=== PATIENT | female | born 1940 | race Caucasian/White ===

== ENCOUNTER 2024-06-20 01:40 | Inpatient (IN) | payer MEDICARE, OTHER, SELFPAY ==
[2024-06-19 23:38] VITALS: BMI 21.0
[2024-06-19 23:47] VITALS: BP 178/124
[2024-06-20] VITALS (89 sets, daily range): BP systolic 105–225; BP diastolic 40–202; BMI 22.5
[2024-06-20] MEDS: TRANDATE 5 MG IV (00:21)
[2024-06-20 00:22] LABS: INR 0.89; PT 12.4 Sec (11.4-14.6)
[2024-06-20 00:23] LABS: APTT 27.2 Sec (23.4-35.0)
[2024-06-20 00:33] LABS: % Basophils 0.7 % (0-2); % Eosinophils 2.6 % (0-6); % Immature Granulocytes 0.3 % (0-0.5); % Lymphocytes 31.6 % (20.5-51.1); % Monocytes 9.2 % (1.7-9.3); % Neutrophils 55.6 % (42.2-75.2); ALT (SGPT) 25 U/L (0-35); AST (SGOT) 34 U/L (14-36); Absolute Basophils 0.1 10^3/uL (0-0.2); Absolute Eosinophils 0.2 10^3/uL (0-0.7); Absolute Lymphocytes 2.3 10^3/uL (1.2-3.4); Absolute Monocytes 0.7 10^3/uL (0.1-0.6); Albumin 5.2 g/dl (3.5-5.0); Alkaline Phosphatase 147 U/L (38-126); Blood Urea Nitrogen 13 mg/dl (7-17); Calcium 9.6 mg/dl (8.4-10.2); Carbon Dioxide 26 mmol/L (22-30); Chloride 101 mmol/L (98-107); Estimated Creatinine Clearance 61 ml/min; Glucose 237 mg/dl (70-99); Hematocrit 40.9 % (37.0-47.0); Hemoglobin 14.2 g/dL (12.0-16.0); Mean Corp Hgb Conc. 34.7 g/dL (33.0-37.0); Mean Corpuscular Hgb 30.9 pg (27.0-31.0); Mean Corpuscular Volume 88.9 fL (81.0-99.0); Nucleated Red Blood Cells % 0 %; Platelet Count 212 10^3/uL (130-400); Potassium 4.3 mmol/L (3.5-5.1); Red Cell Dist. Width 12.2 % (11.5-14.5); Sodium 139 mmol/L (135-145); Total Bilirubin 0.5 mg/dl (0.2-1.3); Total Protein 7.9 g/dl (6.3-8.2); White Blood Cell Count 7.3 10^3/uL (4.8-10.8); eGFR > 60.00
--- NOTE | 2024-06-20 00:39 | ED.CVA ---
History of Present Illness
General
Chief Complaint: CVA/TIA Symptoms
Source: patient
Exam Limitations: none
Time Seen by Provider: 06/20/24 00:27
Nursing documentation reviewed up to this point in time: agreed with
Onset of Stroke Symptoms
Onset of symptoms known: Yes
Date of onset of symptoms: 06/19/24
Time of onset of symptoms: 22:30
Time pt last seen normal is known: Yes
Date last time pt seen normal: 06/19/24
Time last time pt seen normal: 22:00
History of Present Illness
History of Present Illness:
This is an 84 female that presents to the emergency department after seeing bright, with nausea and headache. She states that she lost peripheral vision in her right eye but states that this is improving. Patient states that she has never had
symptoms like this before. Patient does have high blood pressure today without a known history of hypertension. She is accompanied by her daughter who is present at the bedside.
Vital signs are stable. Patient not hypoxic
Nursing note reviewed. I agree with nursing documentation up to this point in time.
Home Meds and allergies reviewed.
NUMBER AND COMPLEXITY OF PROBLEMS ADDRESSED AT THE ENCOUNTER
� Chronic conditions affecting care: Hyperlipidemia, diabetes
� Acute Exacerbation and/or Progression of Chronic Illness:
� Differential Diagnosis includes:
AMOUNT AND/OR COMPLEXITY OF DATA TO BE REVIEWED AND ANALYZED
I performed an independent evaluation of the following and my interpretation is:
EKG: EKG shows normal sinus rhythm rate of 89 with normal intervals, normal axis. No evidence of acute ischemia present.
Pulse Ox: Not Hypoxic
Conciliator: Sinus Rhythm
CT:
CT HEAD (without contrast)
IMPRESSION:
Small acute intraparenchymal hematoma in the left subthalamic/midbrain region, measuring 1.8 x 0.7 x 1.2 cm, with very mild surrounding edema.
No midline shift, effacement of basilar cisterns, or transtentorial herniation.
No CT evidence of acute large territorial infarction.
Mild chronic microvascular ischemic changes of cerebral white matter.
Cerebral volume loss.
X-rays:
Ultrasound:
Laboratory Studies:
Other:
Review of other/old records:
Clinical information was obtained by an independent historian:
Prescriptions/Medications Considered but not given:
Further testing considered but not performed:
RISK OF COMPLICATIONS AND/OR MORBIDITY OR MORTALITY OF PATIENT MANAGEMENT
Social determinants of health affecting care: Good Social Support
Discussion with other providers: I spoke with Dr. Em, neurology who recommended admission to the ICU. I spoke with Dr. Valero via Stephan text who agreed with the plan. Patient is on a labetalol drip to get her blood
pressure closer to normal.
Escalation of care including admission/observation vs risk of discharge considered: After being observed in the emergency department, patient is
CRITICAL CARE NOTE:
Critical care statement: A total of 50 minutes of critical care time was provided for this patient. This time is separate from time utilized to perform the aforementioned documented procedures. Aggregate critical care time includes only time
during which I was engaged in work directly related to the patient's care, as described above, whether at the bedside or elsewhere in the Emergency Department.
Total Time (exclusive of procedures):50
Update:
Past History
Past History
ED Past Medical History: GERD, HTN and NIDDM
Social History
Tobacco: Former smoker
Alcohol: None
Living: with family
Review of Systems
Review of Systems
Allergies reviewed?: Yes
Other source history: family
All Other Systems: ROS reviewed and negative except as documented in HPI and ROS
Phy Exam
General Physical Exam
General Presentation: well appearing and no apparent distress
General Skin: warm and dry
General Habitus: normal
General Mental: alert
General Hydration: appears well hydrated
ENT Exam
ENT Exam: EOMI, pharynx normal, neck supple and normocephalic
Eye Exam
Eye Exam: PERRL, cornea clear and conjunctiva normal
Cardiovascular Exam
Cardiovascular Exam: regular rate/rhythm, no edema, no murmur and normal peripheral pulses
Pulmonary Exam
Pulmonary Exam: lungs clear, no respiratory distress, no rales, no crackles, no rhonchi, no stridor, no wheezing and no cough
Gastrointestinal Exam
Gastrointestinal Exam: normal bowel sounds, non tender, soft, no organomegaly, no pulsatile mass and non distended
Neurological Exam
Neurological Exam: alert, oriented x3, no motor deficits and speech normal
Musculoskeletal Exam
Musculoskeletal Exam: full ROM and no edema
Skin Exam
Skin Exam: normal color, warm/dry, no rash and no petechia
Psychiatric Exam
Psychiatric Exam: normal mood/affect
Scores
NIH Stroke Score
Level of Consciousness: 0 - Alert
LOC Questions: 0-Answers both correctly
LOC Commands: 0-Performs both correctly
Best Horizontal Gaze: 0-Normal
Visual Thomas: 1=Partial hemianopia
Facial Palsy: 0=Normal, symmetrical
Motor - Right Arm: 0=No drift 10 seconds
Motor - Left Arm: 0=No drift 10 seconds
Motor - Right Le-No drift 5 seconds
Motor - Left Le-No drift 5 seconds
Limb Ataxia: 0-Absent
Sensation: 0-Normal
Best Language: 0-No aphasia
Dysarthria: 0-Normal
Extinction and Inattention: 0-No abnormality
Total Score:: 1
Thrombolytic Contraindication
Reasons for NON-Tx with Thrombolytics ABSOLUTE Exclusions: Evidence of intracranial hemorrhage on pre-treatment CT head
Course
Orders/Labs/Results
Orders:
Orders
06/19/24 23:58
Electrocardiogram (*1) Urgent
Reason for Study: Other
Other Reason for Exam: Possible Stroke
Cardiac Monitoring- Treatment ONCE
IV Insert/Care/Rem.- Treatment PRN
Complete Blood Count/With Diff Urgent
Comprehensive Metabolic Panel Urgent
PTT Urgent
Prothrombin Time Urgent
Troponin I Urgent
06/19/24 23:59
EKG- Treatment ONCE
06/20/[address]
CT HEAD STROKE ALERT W/o Cont Urgent
Reason For Exam: visual disturbance
06/20/24 00:17
Type+Screen Urgent
06/20/24 00:19
Labetalol HCl [Trandate] 20 mg .ROUTE .STK-MED ONE
06/20/24 00:21
Labetalol HCl [Trandate] 5 mg IV NOW STA
06/20/24 00:30
ABO2 Routine
BBK Wristband Number:
Associate notified that ABO2 has been ordered: [id number]
Date: 06/20/24
Time: 00:29
Rural Service Engineer ID: [id number]
06/20/24 00:33
Labetalol HCl [Trandate] 20 mg IV [id number] PRN
06/20/24 00:41
Labetalol HCl [Trandate] 400 mg Empty Viaflex Container 100 ml [Viaflex Empty Container] 0 ml IV NOW
Initial dose in mg/min, then titrate:: 2
Titrate to keep:: Other
Titrate to keep other:: BP < 120/80
Titrate by mg/min:: 0.5 mg/min
Frequency of titrations (minutes):: 15
Additional Titration Instructions:: Bolus with 20 mg IV every 15 minutes PRN dose increase
Maximum dose in mg/min:: 4
Begin to taper infusion when:: Remained at goal for 4hrs
Taper by mg/min:: 0.5 - 1 mg/min
Frequency of taper (minutes) if patient maintains goal:: 30
Taper to off?: Yes
If infusion off & no longer maintaining goal:: Contact Provider
06/20/24 01:00
Nicardipine 40 mg/200 ml [Cardene] 40 mg in 200 ml IV PER PROTOCOL
Initial dose in mg/hr, then titrate:: 5
Titrate to keep:: SBP 120 - 140 mmHg
Titrate by mg/hr:: 2.5 mg/hr
Frequency of titrations (minutes):: 5-15 minutes
Maximum dose in mg/hr:: 15
Begin to taper infusion when:: Remained at goal for 2hrs
Taper by mg/hr:: 2.5 mg/hr
Frequency of taper (minutes) if patient maintains goal:: every 15-30 minutes
Taper to off?: Yes
If infusion off & no longer maintaining goal:: Contact Provider
Abnormal Lab Results
06/20/24
00:04
MPV 11.0 H fL
(7.4-10.4)
Absolute Monos (auto) 0.7 H 10^3/uL
(0.1-0.6)
Creatinine 0.5 L mg/dL
(0.6-1.0)
Glucose 237 H mg/dl
(70-99)
Alkaline Phosphatase 147 H U/L
(38-126)
Albumin 5.2 H g/dl
(3.5-5.0)
06/20/24 00:04
06/20/24 00:04
Vital Signs
Initial and Last Documented VS:
Initial Vital Signs
Temp Pulse Resp BP Pulse Ox
97.4 F 102 22 178/124 98
06/19/24 23:47 06/19/24 23:47 06/19/24 23:47 06/19/24 23:47 06/19/24 23:47
Last Documented Vital Signs
Temp Pulse Resp BP Pulse Ox
97.4 F 101 12 211/131 98
06/19/24 23:47 06/20/24 00:21 06/20/24 00:15 06/20/24 00:21 06/20/24 00:15
*Radiology
Radiology exam reviewed: radiology read reviewed (Verbal report received)
*Pulse Oximetry
Patient hypoxic: no
*EKG
Interpreted by ED Provider?: Yes
Interpretation: normal
Comparison EKG: changes noted
Heart Rate: 89
Rate: normal
Rhythm: sinus
[place]: right axis deviation
Interval: normal interval and long QT (Slightly prolonged QT at 491 ms.)
QRS Pattern: normal QRS
Ischemia: no ischemia
*Conciliator Interpretation
Rate: normal
Interpretation: normal
Heart Rate: 82
Rhythm: sinus
*Critical Care Note
Total Time (30-74mins, 75-104mins- exclusive of procedures): 50
ED Attending Note
-
Portions of this chart may have been created with voice recognition software.� Occasional wrong word or��sound alike� substitutions may have occurred due to the inherent limitations of voice recognition software.
Discharge Plan
Departure
Patient Disposition: Admit
Date of Disposition: 06/20/24
Time of Disposition: 01:01
Admit to: ICU
Presentation/result/management discussed w/ accepting MD/DO: Hospitalist
Condition: Serious
Discharge Problem:
Intraparenchymal hemorrhage of brain
Prescriptions:
No Action
pravastatin [Pravachol] 40 MG tablet
40 mg PO DAILY
ascorbic acid (vitamin C) [Vitamin C] 500 MG capsule, extended release
500 mg PO DAILY
omeprazole magnesium [Prilosec OTC] 20 MG tablet,delayed release (DR/EC)
40 mg PO DAILY
multivitamin with folic acid [Tab-A-Jennifer] 1 TABLET tablet
1 tab PO DAILY
metformin 1,000 mg Tablet
1,000 mg PO BID
coenzyme Q10 [CoQ-10] 30 mg Capsule
30 mg PO DAILY
Interventions
Interventions:
*Risk Screen - Suicide Last Done: 06/19/24 23:47
*General Assessment Last Done: 06/20/24 00:47
*Neglect/Abuse Screening Last Done: 06/19/24 23:47
*ED COVID-19 Vaccine History Last Done: 06/20/24 00:47
ED- Pulmonary Assessment Last Done: 06/20/24 00:00
ED- Neurological Assessment Last Done: 06/20/24 00:00
ED- Cardiac Assessment Last Done: 06/20/24 00:00
Discharge Date and Time
Print Language: MAORI
[2024-06-20 00:40] LABS: Troponin I < 0.012 ng/ml
[2024-06-20] MEDS: CARDENE 200 IV ×4 (01:04→09:58)
--- NOTE | 2024-06-20 01:15 | HPS.HSE ---
Family Physician
-
Family Physician: NO INTERVIEW UNKNOWN
Chief Complaint
-
Vision Changes
History of Present Illness
Patient is an 84y F with PMH significant for DM-II and dyslipidemia who presents to ED complaining of vision changes. Patient states that she noted sudden onset of colorful shapes in her vision around 10:30 PM this evening. She reports very
mild headache, but no other symptoms. The vision changes have persisted and are unchanged. She presented to the ED for further evaluation and treatment.
CT of the head done in the ED reveals small subthalamic intracerebral hemorrhage without midline shift.
Case reviewed with Neurology and Neurosurgery who recommended admission to ICU at for further management.
Medical History
Past Medical History
Past Medical History: Reports Other
Additional Past Medical History:
DM-II
Sicca Syndrome
GERD
Dyslipidemia
Skin Cancer
Diverticular Disease
Past Surgical History: Reports Other
Additional Past Surgical History:
Breast Biopsy (benign)
Hysterectomy
D&C
Ex Lap / Partial Oophorectomy
Social History
Tobacco: Former Smoker (Quit smoking > 50 years ago.)
Alcohol: Occasional
Drug: None
Family History
Family History: Other (Father: Colon Cancer Mother: DM)
Allergies / Home Medications
Allergies reflects when Allergies were last updated in [facility].
Home Medications with original date entered in [facility]
Allergy/Medication List:
Allergies
Allergy/AdvReac Type Severity Reaction Status Date / Time
Penicillins Allergy Unknown Verified 11/04/14 12:55
Sulfa (Sulfonamide Allergy Swelling Verified 11/04/14 12:55
Antibiotics)
acromycin Allergy Swelling Uncoded 11/04/14 12:55
Home Medications
ascorbic acid (vitamin C) 500 mg capsule,extended release (Vitamin C) 500 mg PO DAILY 09/28/10
multivitamin with folic acid 400 mcg tablet (Tab-A-Jennifer) 1 tab PO DAILY 11/11/09
omeprazole magnesium 20 mg tablet,delayed release (Prilosec OTC) 40 mg PO DAILY 11/11/09
pravastatin 40 mg tablet (Pravachol) 40 mg PO DAILY 11/11/09
coenzyme Q10 30 mg capsule 30 mg PO DAILY 06/20/24
metformin 1,000 mg tablet 1,000 mg PO BID 06/20/24
Review of Systems
-
History Source: Patient
A 12 point ROS was completed and negative except as noted: Yes
Constitutional: Reports Fatigue; Denies Fever or Chills
EENT: Reports Other (Vision changes); Denies Sore Throat
Respiratory: Denies Cough or Trouble Breathing
Cardiac: Denies Chest Pain or Palpitations
Abdomen/GI: Denies Abdominal Pain, Nausea, Vomiting or Diarrhea
: Denies Dysuria, Frequency or Flank Pain
Musculoskeletal: Denies Joint Pain or Edema
Neurological: Reports Dizzy and Headache; Denies Weakness or Numbness
Psych: Denies Depression or Anxiety
Physical Exam
Vital Signs
Vital Signs
Temp Pulse Resp BP Pulse Ox
97.4 F 104 23 196/95 92
06/19/24 23:47 06/20/24 01:10 06/20/24 01:10 06/20/24 01:10 06/20/24 01:10
Physical Exam
General: Other (84y F in no acute distress.)
HEENT: PERRLA and Other (Dry MM. Neck supple.)
Respiratory: Clear; No Wheezes, Rales or Rhonchi
Cardiac: S1/S2 and Regular Rhythm; No Murmur
GI: Soft, Non Tender, Non Distended and Normal Bowel Sounds
Musculoskeletal: No Clubbing, No Cyanosis and No Edema
Neuro: AO x 3 and Other (Reported visual changes. No gross visual field cut on exam. Strength intact / symmetric. Slightly 'jerky' eoaolt-ma-dfeh testing.)
Psych: No Anxious or Depressed
Laboratory Results
-
06/20/24 00:04
06/20/24 00:04
Laboratory Results
PT 12.4 Sec (11.4-14.6) 06/20/24 00:04
INR 0.89 06/20/24 00:04
APTT 27.2 Sec (23.4-35.0) 06/20/24 00:04
Total Bilirubin 0.5 mg/dl (0.2-1.3) 06/20/24 00:04
AST 34 U/L (14-36) 06/20/24 00:04
ALT 25 U/L (0-35) 06/20/24 00:04
Alkaline Phosphatase 147 U/L (38-126) H 06/20/24 00:04
Troponin I < 0.012 ng/ml 06/20/24 00:04
Impression/Plan
-
A/P: Patient is an 84y F with PMH significant for DM-II and dyslipidemia who presents to ED complaining of vision changes.
Intracranial Hemorrhage
Hypertensive Emergency
- Admit to ICU for further evaluation / close monitoring.
- IV nicardipine initiated for goal SBP of 140 overnight.
- Follow serial neurologic exams for any changes.
- Repeat imaging with MRI in AM. Repeat CT sooner if any acute changes.
- Neurology / Neurosurgery evaluations for additional recommendations.
- Avoid antiplatelets, anticoagulants acutely.
- PT / OT / Speech evaluations.
- Follow for clinical changes.
DM-II
- Stable. Hold PO medications.
- Follow glucose and cover with SSI as needed.
- Update A1C.
DVT Prophylaxis: SCDs
Code Status: Full
--- NOTE | 2024-06-20 01:27 | EDRN ---
This RN asked pt. if she is allergic to contrast dye, pt. states, 'I may be, is that the sulfa drug dye? because one time for my bladder I did have the dye test and I had a reaction, my whole arm was swollen'. When RN asked pt. is it was the
contrast dye for a CT scan, pt. states, 'it could have been, I don't remember what it was but I definitely had a reaction'.
[2024-06-20 02:14] LABS: Glucose - Point of Care 261 mg/dl (70-99)
--- NOTE | 2024-06-20 02:30 | PTCARENOTE ---
Received pt on Cardene gtt at 12.5. Goal to maintain SBP 120-140. Patient Aox3, very anxious, VEGA, NIH-1 for visual cut in right eye. BG 261, 4 units given.
[2024-06-20] MEDS: NOVOLOG FLEXPEN 4 UNITS SC (03:18)
[2024-06-20] MEDS: TYLENOL ORAL SOLUTION 650 MG PO ×3 (04:32→20:43)
[2024-06-20 04:37] LABS: Hematocrit 37.4 % (37.0-47.0); Hemoglobin 13.3 g/dL (12.0-16.0); Mean Corp Hgb Conc. 35.6 g/dL (33.0-37.0); Mean Corpuscular Hgb 31.2 pg (27.0-31.0); Mean Corpuscular Volume 87.8 fL (81.0-99.0); Platelet Count 219 10^3/uL (130-400); Red Blood Cell Count 4.26 10^6/uL (4.20-5.40); Red Cell Dist. Width 12.2 % (11.5-14.5); White Blood Cell Count 10.7 10^3/uL (4.8-10.8)
[2024-06-20 05:09] LABS: Blood Urea Nitrogen 14 mg/dl (7-17); Calcium 9.3 mg/dl (8.4-10.2); Carbon Dioxide 24 mmol/L (22-30); Chloride 100 mmol/L (98-107); Estimated Creatinine Clearance 61 ml/min; Glucose 277 mg/dl (70-99); HDL Cholesterol 61 mg/dl; LDL Cholesterol, Calculated 85 mg/dl; Magnesium 1.8 mg/dl (1.6-2.3); Phosphorus 3.6 mg/dl (2.5-4.5); Potassium 3.9 mmol/L (3.5-5.1); Sodium 137 mmol/L (135-145); Total Cholesterol 159 mg/dl (50-199); Triglyceride 65 mg/dl (10-149); Very Low Density Lipoprotein 13 mg/dl (0-30); eGFR > 60.00
[2024-06-20 06:14] LABS: Glucose - Point of Care 272 mg/dl (70-99)
--- NOTE | 2024-06-20 07:45 | PTCARENOTE ---
received patient from hotel night auditor. patient is extremely pleasant and cooperative, although appropriately anxious. She is AAOx4, NIHSS completed at handoff, 1 scored for partial visual field cut of right eye. she is on 2L nasal cannula, dropped
saturation when sleeping, will remove. She is sinus rhythm on monitor with cardene infusion to keep SBP between 120-140. She has order for clear liquid diet, is using bed lopez appropriately. Skin is intact, scds are on. Stroke education packet
provided and awaiting plan of care. patient is unsure if she has dye allergy, does not want to do CT with contrast, will relay to physician. Patient also has claustrophobia, would not want to do MRI.
[2024-06-20] MEDS: NOVOLOG FLEXPEN-LOW RESISTANCE 2 UNITS SC (07:47)
--- NOTE | 2024-06-20 07:47 | CON.NEURO ---
Consultation
Order
Date of Consultation: 06/20/24
Requesting Provider: Chip Maharaj DO
Reason for Consult: ICH, hypertensive emergency
Neurology Consultation Note.
HPI: This is an 84-year-old right-handed woman who presented to [facility] on June 19, 2024 with visual symptoms.
The patient describes current visual disturbances, noting that vision is 'not good' with the left eye possibly being slightly better than the right. She is unable to further specify
The patient lives alone with a dog and is independent in activities of daily living, including driving and medication management. Current medications include pravastatin and metformin. The patient was not taking aspirin prior to admission. Past
medical history includes hypertension, for which the patient was not on medication, noting that blood pressure tends to fluctuate easily. The patient has a history of smoking from late teens until approximately age 28.
Surgical history includes cystoscopy, breast biopsy, surgery for endometriosis, , hysterectomy, and laser eye surgery for drainage in both eyes. Ms. Edmondson is unable to specify further. No reports of headaches, diplopia, change in
speech or language, motor or sensory deficits.
ER VS: 178/124�125/202, 102, afebrile, 98 on room air.
EKG: NSR, QTc Int : 491 ms
PDMP: none
Labs: Glucose�261, normal PT/INR, platelets.
CT head wo contrast-0.8 x 0.7 x 1.2 cm left thalamic ICH with minimal surrounding edema.
PMH: DLP, DM, GERD, FANG, endometriosis, IBS, vitamin D deficiency
PSH: Bilateral cataract surgery, , hysterectomy, breast biopsy, cystoscopy, partial oophorectomy, Mohs procedure
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
FH:
All: Sulfa, penicillin, Tetracycline
ROS: Constitutional: Negative. Negative for chills, fever and unexpected weight change.
HENT: Positive for hearing impairment
Eyes: Positive for visual disturbance.
Respiratory: Negative for cough, choking and shortness of breath.
Cardiovascular: Negative for chest pain, palpitations and leg swelling.
Gastrointestinal: Negative for abdominal pain and vomiting.
Endocrine: Negative. Negative for cold intolerance.
Genitourinary: Negative for dysuria, flank pain and urgency.
Musculoskeletal: Negative for back pain, gait problem, neck pain and neck stiffness.
Skin: Negative for rash.
Allergic/Immunologic: Negative. Negative for immunocompromised state.
Neurological: Negative for dizziness, tremors, seizures, speech difficulty, numbness and headaches.
Psychiatric/Behavioral: Negative for behavioral problems, confusion and hallucinations.
General: Well developed. In no acute distress.
Cardio: Regular rate and rhythm without murmur. Extremities are without cyanosis or edema.
Neuro:
Mental Status: Alert, oriented to person, place, and date. Normal attention and recall. Good fund of knowledge. Follows complex requests across the midline. Comprehension, naming, and repetition intact.
Cranial Nerves: Pupils are equally round, surgical. EOMs full. Visual arias full to confrontation. No ptosis. No nystagmus. V1-V3 intact to light touch and pinprick bilaterally, symmetric. Face symmetric. Impaired hearing AU. The palate
elevated well. SCMs and traps 5/5. Tongue midline. No dysarthria.
Motor: Normal bulk and tone. No pronator or arm drift. Strength 5/5 throughout. No clonus.
Reflexes: 2+ throughout the upper extremities and knees. Plantar responses flexor bilaterally.
Sensory: Normal vibration at the ankle
Coordination: No dysmetria, symmetric action hand tremor
Gait: deferred
Assessment and Plan:
I. 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 ICH score-1. Mortality rate 13 %.
II. Hypertensive emergency
III. FANG, action hand tremor
- Telemetry monitoring
- Aspiration precautions
- AHA guidelines recommend lowering systolic SBP to <160 mmHg
- Maintain elevation of HOB 30-45 degrees
- Continuous monitoring using pulse oximetry if O2 saturation is <96%
- Normal saline should be used for maintenance and replacement fluids.
- Brain MRI without fang with sedation
- Repeat CT head within 24 hours if MRI is not feasible
- No antiplatelets or anticoagulants
- SCD/VANESSA
I personally reviewed all radiology and labs along with past medical records pertinent to current medical problems. Total time spent in patient care is 60 minutes.
Thank you for allowing us to participate in the care of this patient. We will continue to follow. Please do not hesitate to contact us with any questions or concerns.
Subjective/Objective
Subjective Data
Date of Service: June 20, 2024
Objective Data
Vital Signs
Temp Pulse Resp BP Pulse Ox
36.6 C 74 18 142/61 97
06/20/24 03:31 06/20/24 07:15 06/20/24 07:15 06/20/24 07:15 06/20/24 07:15
Lab Results
06/20/24 04:29
06/20/24 04:29
PT 12.4 Sec (11.4-14.6) 06/20/24 00:04
INR 0.89 06/20/24 00:04
APTT 27.2 Sec (23.4-35.0) 06/20/24 00:04
Sodium 137 mmol/L (135-145) 06/20/24 04:29
Potassium 3.9 mmol/L (3.5-5.1) 06/20/24 04:29
BUN 14 mg/dl (7-17) 06/20/24 04:29
Glucose 277 mg/dl (70-99) H 06/20/24 04:29
Calcium 9.3 mg/dl (8.4-10.2) 06/20/24 04:29
Phosphorus 3.6 mg/dl (2.5-4.5) 06/20/24 04:29
LDL Cholesterol, Calc 85 mg/dl 06/20/24 04:29
Patient Allergies
Penicillins Allergy (Verified 11/04/14 12:55)
Unknown
Sulfa (Sulfonamide Antibiotics) Allergy (Verified 11/04/14 12:55)
Swelling
acromycin Allergy (Uncoded 11/04/14 12:55)
Swelling
Medications
-
Active Medications
Generic Name Dose Route Start Last Admin
Trade Name Freq PRN Reason Stop Dose Admin
Acetaminophen 650 mg 06/20/24 03:41 06/20/24 04:32
Acetaminophen (Oral Solution) 650 Mg/20.3 Ml Cup PO 07/18/24 03:40 650 mg
Q4HPRN PRN Administration
mild pain/fever>100.3
Dextrose 12.5 grams 06/20/24 02:26
Dextrose 50% (0.5 Grams/Ml) 50 Ml Syringe IV 07/18/24 02:25
[id number] PRN
hypoglycemia
Protocol
Glucagon 1 mg 06/20/24 02:26
Glucagon 1 Mg Vial IM 07/18/24 02:25
PRN PRN
hypoglycemia
Protocol
Nicardipine/Sodium Chloride 40 mg in 200 mls @ 0 mls/hr 06/20/24 01:00 06/20/24 07:17
Cardene IV 200 mls
PER PROTOCOL STEPHANIE Administration
Protocol
Per Protocol
Insulin Aspart 0 units 06/20/24 07:30
Insulin Aspart Low Resistance 300 Units/3 Ml Pen.Injctr SC 07/18/24 07:29
AC STEPHANIE
Protocol
Sodium Chloride 0 flush 06/20/24 02:00
Sodium Chloride 0.9% (Flush) Syringe IV 07/18/24 01:59
PER PROTOCOL STEPHANIE
Home Medications
�Medication �Instructions �Recorded
ascorbic acid (vitamin C) 500 mg 500 mg PO DAILY 11/11/09
capsule,extended release (Vitamin
C)
multivitamin with folic acid 400 1 tab PO DAILY 11/11/09
mcg tablet (Tab-A-Jennifer)
omeprazole magnesium 20 mg 40 mg PO DAILY 11/11/09
tablet,delayed release (Prilosec
OTC)
pravastatin 40 mg tablet 40 mg PO DAILY 11/11/09
(Pravachol)
coenzyme Q10 30 mg capsule 30 mg PO DAILY 06/20/24
metformin 1,000 mg tablet 1,000 mg PO BID 06/20/24
Vital Signs and Labs
-
Vital Signs and Labs:
Vital Signs
Temp Pulse Resp BP Pulse Ox
36.6 C 75 15 125/79 97
06/20/24 07:48 06/20/24 08:30 06/20/24 08:30 06/20/24 08:30 06/20/24 08:38
Lab Results
06/20/24 04:29
06/20/24 04:29
PT 12.4 Sec (11.4-14.6) 06/20/24 00:04
INR 0.89 06/20/24 00:04
APTT 27.2 Sec (23.4-35.0) 06/20/24 00:04
Sodium 137 mmol/L (135-145) 06/20/24 04:29
Potassium 3.9 mmol/L (3.5-5.1) 06/20/24 04:29
BUN 14 mg/dl (7-17) 06/20/24 04:29
Glucose 277 mg/dl (70-99) H 06/20/24 04:29
Calcium 9.3 mg/dl (8.4-10.2) 06/20/24 04:29
Phosphorus 3.6 mg/dl (2.5-4.5) 06/20/24 04:29
LDL Cholesterol, Calc 85 mg/dl 06/20/24 04:29
Medications
-
Medications:
Generic Name Dose Route Start Last Admin
Trade Name Freq PRN Reason Stop Dose Admin
Acetaminophen 650 mg 06/20/24 03:41 06/20/24 04:32
Acetaminophen (Oral Solution) 650 Mg/20.3 Ml Cup PO 07/18/24 03:40 650 mg
Q4HPRN PRN Administration
mild pain/fever>100.3
Dextrose 12.5 grams 06/20/24 02:26
Dextrose 50% (0.5 Grams/Ml) 50 Ml Syringe IV 07/18/24 02:25
[id number] PRN
hypoglycemia
Protocol
Glucagon 1 mg 06/20/24 02:26
Glucagon 1 Mg Vial IM 07/18/24 02:25
PRN PRN
hypoglycemia
Protocol
Nicardipine/Sodium Chloride 40 mg in 200 mls @ 0 mls/hr 06/20/24 01:00 06/20/24 07:17
Cardene IV 200 mls
PER PROTOCOL STEPHANIE Administration
Protocol
Per Protocol
Insulin Aspart 0 units 06/20/24 07:30 06/20/24 07:47
Insulin Aspart Low Resistance 300 Units/3 Ml Pen.Injctr SC 07/18/24 07:29 2 units
AC STEPHANIE Administration
Protocol
Metformin HCl 1,000 mg 06/20/24 09:00
Metformin 1000 Mg Regular Release Tablet PO 07/18/24 08:59
BID@0800,1700 STEPHANIE
Pantoprazole Sodium 40 mg 06/20/24 09:00
Pantoprazole 40 Mg Delayed Release Tablet PO 07/18/24 08:59
DAILY STEPHANIE
Sodium Chloride 0 flush 06/20/24 02:00
Sodium Chloride 0.9% (Flush) Syringe IV 07/18/24 01:59
PER PROTOCOL STEPHANIE
Home Medications
-
Home Medications
ascorbic acid (vitamin C) 500 mg capsule,extended release (Vitamin C) 500 mg PO DAILY 11/11/09
multivitamin with folic acid 400 mcg tablet (Tab-A-Jennifer) 1 tab PO DAILY 11/11/09
omeprazole magnesium 20 mg tablet,delayed release (Prilosec OTC) 40 mg PO DAILY 11/11/09
pravastatin 40 mg tablet (Pravachol) 40 mg PO DAILY 11/11/09
coenzyme Q10 30 mg capsule 30 mg PO DAILY 06/20/24
metformin 1,000 mg tablet 1,000 mg PO BID 06/20/24
[2024-06-20 07:54] LABS: Glucose - Point of Care 238 mg/dl (70-99)
--- NOTE | 2024-06-20 08:13 | W.PN.UPDATE ---
Update Note
Progress Note Update
I saw and evaluated the patient. I reviewed the resident�s note and agree with findings and plan as documented in the resident�s note except for changes in my documentation
84-year-old female presented with vision changes sudden onset of colorful shapes
CT head reviewed by me-left thalamus hemorrhage
Chest x-ray-no acute cardiopulmonary process
Awake alert oriented x 3 conversant
Right lower quadrant hemianopsia noted
Cranial nerves otherwise unremarkable
Motor and sensory exam normal
Cardiovascular system S1-S2 appreciated
Chest clear to auscultation
Abdomen soft and nontender
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
Possibly related to hypertension
Monitor for any symptoms of elevated intracranial pressure
Head of bed elevation to 30 degrees
Keep blood pressure less than 140 mmHg-on Cardene drip
Keep sodium greater than 135
Neurosurgery evaluation
MRI of the brain to rule out any underlying mass or stroke
# Diabetes-hemoglobin A1c-8.5
Avoid too tight control at age 84
Restarted metformin
Continue Accu-Cheks and sliding scale coverage
# Hypertension-we need to start oral antihypertensives. Patient was on Diovan in the past and then needed to decrease the dose in half and then later on her PCP discontinued it as the blood pressure did not need it. Restart Diovan at 160 mg/day
# Hyperlipidemia- statin
# GERD-continue PPI
# Diverticulosis
# SCDs for DVT prophylaxis
# Full code
Discussed with daughter at bedside
Discussed with ICU nursing and pharmacist
Part of this note was created using voice recognition system. Occasional wrong word or��sound alike� substitutions may have inadvertently occurred due to the inherent limitations of voice recognition software. If noted kindly bring it to my
attention for correction.
--- NOTE | 2024-06-20 08:39 | W.PN.HOSP.TC ---
Addendum entered and electronically signed by Geneva Bunn MD 06/20/24 15:02:
Cardene off
Rpt CT Stable
See separate note.
Original Note:
Today's Communication/Plan
-
- IV nicardipine gtt was switched to oral losartan
- Monitor blood pressure with a goal to keep with between 120-140
- Started on long-acting insulin with MDISS
Assessment / Plan
Assessment / Plan
Impression: 84y F with PMH of for DM-II, dyslipidemia, GERD, Sicca syndrome, skin cancer and diverticular disease who presents to ED complaining of vision changes on her right eye, nausea and headache.
#Intracranial Hemorrhage
-Neurology on board
-Stat head CT:Overall stable left thalamic lacunar hemorrhage.
-Neurosurgery/case discussed -consulted at admission
-Avoid antiplatelets, anticoagulants given CT findings
- Following at ICU for further evaluation / close monitoring.
-Continue serial neurologic exams-can downgrade frequency if patient stable in 24 hours
- PT / OT / Speech evaluations.
#Hypertensive Emergency complicated with Intracranial Hemorrhage
-Given labetalol at ER
-Nicardipine given to keep SBP under 140 over the night
-Started valsartan PO-stopped Nicardipine gtt
- Monitor blood pressure
DM-II
-Recommended to continue Metformin
-Started on 10U qhs long acting insulin
-MDISS given high sugar levels and recent A1C% of 8.5%
Diet: Cholesterol-lowering/diabetic diet
DVT Prophylaxis: SCDs
Code Status: Full
Anticipated Discharge: 24 - 48 hours
Subjective/Interval History
-
Date of Service: June 20, 2024
Patient reports vision changes especially on her right eye since yesterday evening. Reports some improvement with her vision comparing to the beginning of her symptoms. Denies any consciousness, feeling dizzy, palpitations, chills.
Objective Data
-
Labs:
Laboratory Results
06/20/24 06/20/24
00:04 04:29
WBC 7.3 10.7
Hgb 14.2 13.3
Hct 40.9 37.4
Plt Count 212 219
PT 12.4
INR 0.89
APTT 27.2
Sodium 139 137
Potassium 4.3 3.9
Chloride 101 100
Carbon Dioxide 26 24
BUN 13 14
Creatinine 0.5 L 0.5 L
Glucose 237 H 277 H
Calcium 9.6 9.3
Total Bilirubin 0.5
AST 34
ALT 25
Alkaline Phosphatase 147 H
Vital Signs:
Vital Signs
Temp Pulse Resp BP Pulse Ox
97.8 F 75 15 125/79 97
06/20/24 07:48 06/20/24 08:30 06/20/24 08:30 06/20/24 08:30 06/20/24 08:38
I&O
06/19/24 06/20/24 06/21/24
06:59 06:59 06:59
Intake Total 362.5 / 425.0 125.0 / 125.0
Balance 362.5 / 425.0 125.0 / 125.0
Review of Systems
-
History Source: Patient
EENT: Reports No Symptoms Reported
Respiratory: Reports No Symptoms
Cardiac: Reports No Symptoms
Abdomen/GI: Reports No Symptoms
Genitourinary: Reports No Symptoms
Musculoskeletal: Reports No Symptoms
Skin: Reports No Symptoms
Neuro: Reports Other (Vision changes)
Physical Exam
-
General: Well Developed, Well Nourished, No Apparent Distress, Comfortable and Conversant
HEENT: Normocephalic
Respiratory: Clear to Auscultation
Cardiac: Regular Rhythm and S1/S2
GI: Soft and Nontender
Musculoskeletal: No Clubbing, No Cyanosis and No Edema
Skin: Warm
Neuro: Awake, Alert, Oriented, AO x 3 and Nonfocal/Grossly Intact
Psych: Calm
[2024-06-20 08:55] LABS: Glycohemoglobin (HgbA1c) 8.5 % (4.0-5.6)
[2024-06-20] MEDS: PROTONIX 40 MG PO (09:58)
--- NOTE | 2024-06-20 11:41 | CON.INTV ---
Consultation
Consultation Request
Date/Time Consultation Requested: 06/20/2024
Date/Time Consultation Performed: 06/20/2024
Medical History
-
Chief Complaint: Vision Changes
History of Present Illness:
84 year old female with a past medical history of hyperlipidemia, GERD, NIDDM and an interval history of white coat hypertension/essential hypertension having required valsartan/losartan in the past, but has not been on for >5 years. She reports
that she was in her usual state of health yesterday evening when she noticed changes in her vision. She reports multicolored, opalescent and yellow-green/orange colored shapes across her visual field and feeling 'off'. She does not report having any
headache, chest pain, palpitations, bounding pulse, dizziness, lightheadedness, recent trauma, history of migraine or recent illness. She has a chronic history of neck pain which she was told is arthritis. She does not take any blood thinners. She
does not check her blood pressure at home. She reports no changes to medication.
A head CT was done on admission which demonstrated a 1.8cm thalamic intraparenchymal hemorrhage. She was found to be significantly hypertensive in the ED to the 220s/110s requiring labetalol. Neurosurgery was consulted and she was sent to ICU for
further management and nicardipine ggt. She remains awake and responsive, though she does still endorse some vision changes.
Past Medical History
Past Medical History: GERD, Hypercholesterolemia and NIDDM
Past Surgical History:
Social History
Tobacco: Non-smoker
Alcohol: None
Drug: None
Personal:
Living: Alone (with Dog)
Employment: Retired
Family History
Family History: Reviewed & Not Pertinent
Allergies / Home Medications
Allergies
Allergy/AdvReac Type Severity Reaction Status Date / Time
Penicillins Allergy Unknown Verified 11/04/14 12:55
Sulfa (Sulfonamide Allergy Swelling Verified 11/04/14 12:55
Antibiotics)
acromycin Allergy Swelling Uncoded 09/21/15 12:55
Home Medications
�Medication �Instructions �Recorded �Confirmed �Last Taken �Type
ascorbic acid (vitamin C) 500 mg 500 mg PO DAILY 11/11/09 06/20/24 11/10/09 History
capsule,extended release (Vitamin
C)
multivitamin with folic acid 400 1 tab PO DAILY 11/11/09 06/20/24 11/10/09 History
mcg tablet (Tab-A-Jennifer)
omeprazole magnesium 20 mg 40 mg PO DAILY 11/11/09 06/20/24 11/11/09 History
tablet,delayed release (Prilosec
OTC)
pravastatin 40 mg tablet 40 mg PO DAILY 11/11/09 06/20/24 11/11/09 History
(Pravachol)
coenzyme Q10 30 mg capsule 30 mg PO DAILY 06/20/24 06/20/24 Unknown History
metformin 1,000 mg tablet 1,000 mg PO BID 06/20/24 06/20/24 Unknown History
Review of Systems
Vitals / Labs / Diagnostic Testing
Vital Signs
Temp Pulse Resp BP Pulse Ox
97.7 F 79 20 130/71 97
06/20/24 11:16 06/20/24 11:00 06/20/24 11:00 06/20/24 11:00 06/20/24 10:15
Lab Data
06/20/24 04:29
06/20/24 04:29
Laboratory Results
06/20/24
00:04
PT 12.4
INR 0.89
APTT 27.2
Diagnostic Testing:
Physical Exam
-
HEENT: Normocephalic, Anicteric and Moist Mucous Membranes
Cardiovascular: S1/S2 and Regular Rhythm
Respiratory: Clear and Non-Labored Respirations
GI: Soft, Non Distended and Non Tender
Neurology: AO x 3 and No Motor Deficits
Skin: Warm and Dry
General: Comfortable
Assessment
-
ASSESSMENT:
84 year old female with acute vision changes <24 hours
Left Thalamic Intraparenchymal Hemorrhage
Hypertensive Emergency
Hyperlipidemia
NIDDM
GERD
PLAN:
Differentials for ICH include amyloid microangiopathy vs. hypertensive. Patient not on blood thinners
Obtain Brain MRI if able with Ativan sedation as is most sensitive test -- repeat CT imaging if unable to obtain MRI
Neuro following, appreciate recs.
Wean nicardipine ggt as tolerated to maintain sbp 120-140mmHg, bridge with PO antihypertensives (valsartan ordered per primary team)
Initiate long acting insulin 10U qhs and observe POC glucose checks
Transition from LDISS to MDISS given sugars and recent A1C% of 8.5%
Restarted on pravastatin
Cholesterol lowering-diabetic diet
DVT PPx: SCDs, avoid antiplatelets/anticoagulation
Code Status: Full Code
[2024-06-20] MEDS: DIOVAN 160 MG PO (11:43)
[2024-06-20] MEDS: PRAVACHOL 40 MG PO (11:43)
--- NOTE | 2024-06-20 11:48 | CON.NS ---
Consultation
-
Date/Time Consultation Performed: 06/20/2024 11:48
Chief Complaint
-
vision changes
History of Present Illness
84 year old female with PMH diabetes, dyslipidemia, presented to ER with vision changes. The patient noted a sudden onset of colorful shapes in her vision around 10:30pm on 06/19/24. She also states she felt generally unwell but denies any weakness
or falls. She is not on any blood thinners. Her workup revealed left thalamic hemorrhage and we have been consulted.
Review of Systems
-
12 point review of systems negative unless otherwise noted in HPI
Medication and Allergies
Home Medications
Home Medications
�Medication �Instructions �Recorded
ascorbic acid (vitamin C) 500 mg 500 mg PO DAILY 11/11/09
capsule,extended release (Vitamin
C)
multivitamin with folic acid 400 1 tab PO DAILY 11/11/09
mcg tablet (Tab-A-Jennifer)
omeprazole magnesium 20 mg 40 mg PO DAILY 11/11/09
tablet,delayed release (Prilosec
OTC)
pravastatin 40 mg tablet 40 mg PO DAILY 11/11/09
(Pravachol)
coenzyme Q10 30 mg capsule 30 mg PO DAILY 06/20/24
metformin 1,000 mg tablet 1,000 mg PO BID 06/20/24
Allergies
Allergies
Allergy/AdvReac Type Severity Reaction Status Date / Time
Penicillins Allergy Unknown Verified 11/04/14 12:55
Sulfa (Sulfonamide Allergy Swelling Verified 11/04/14 12:55
Antibiotics)
acromycin Allergy Swelling Uncoded 11/04/14 12:55
Physical Exam
-
Exam:
AAOx3
Cn 2-12 GI
EOMI
breathing non labored
motor 5/5 throughout
sensation intact to LT
hearing GI
skin warm and dry
Head CT:
FINDINGS:
There is an acute left thalamic intraparenchymal hemorrhage measuring approximately 1.8 x 0.7 x 1.2 cm with minimal surrounding edema, without mass effect without midline shift. The ventricles, cisterns and sulci are prominent commensurate with age.
Some mild decreased attenuation is seen in the periventricular deep white matter compatible with senescent and/for small vessel related ischemic changes. The brainstem and posterior fossa structures demonstrate no significant focal abnormality.
IMPRESSION:
1.8 cm acute hemorrhage in the left thalamus.
Problems
-
Problem Status Onset Code
Intraparenchymal hemorrhage of brain I61.9
Assessment / Plan
-
Left thalamic hemorrhage
--repeat head CT to establish stability
--maintain SBP <140
--frequent neuro checks first 24 hours then if stable can downgrade
--neurology consult for stroke workup
--MRI wwo contrast pending
--does not take any blood thinners
--will follow for repeat images
--discussed with Dr. Cali
[2024-06-20] MEDS: NOVOLOG FLEXPEN-MODERATE RESISTANCE 5 UNITS SC ×2 (12:11→17:42)
[2024-06-20 12:19] LABS: Glucose - Point of Care 263 mg/dl (70-99)
--- NOTE | 2024-06-20 12:53 | PTOTSP ---
Speech Therapy Evaluation:
Pt presents with grossly functional oropharyngeal swallow at bedside as demonstrated by mild lingual residue that cleared with independent utilization of liquid wash and no overt s/sx of aspiration across session. No significant predisposing risk
factors of dysphagia, however precipitating risk factor includes acute L thalamic hemorrhage. Currently WBC WNL, pt on room air, and pt passed 3oz swallow screen.
Recommend:
1. IDDSI Level 7 (regular) solids and thin liquids
2. Medications as tolerated
3. General aspiration and reflux precautions
4. [employer] to follow to monitor tolerance of diet level and determine need for further assessment.
--- NOTE | 2024-06-20 14:55 | PTCARENOTE ---
Patient back from CT scan and patient is OOB to chair. cardene if off. BP reads less than 120SBP. notified care team. ok [facility] SBP being 100-[address] Bunn.
[2024-06-20 17:41] LABS: Glucose - Point of Care 265 mg/dl (70-99)
--- NOTE | 2024-06-20 18:24 | PTCARENOTE ---
Neuro checks remain unchanged. patient still has MRI pending. PRN ativan prior to MRI ordered, MRI tomorrow.
--- NOTE | 2024-06-20 20:00 | PTCARENOTE ---
On assessment pt AAOx3, [facility] [[email or web address]] at shift change was 1 see flowsheet, denies pain and SOB, SR on the monitor, cholesterol lowering diet, ambulates to BR with standby assist, call ghosh in reach
[2024-06-20 20:38] LABS: Glucose - Point of Care 284 mg/dl (70-99)
[2024-06-20] MEDS: LANTUS 0.1 UNITS SC (20:43)
[2024-06-21] VITALS (26 sets, daily range): BP systolic 116–173; BP diastolic 53–111; PULSE 93; BMI 22.7
--- NOTE | 2024-06-21 | PTCARENOTE ---
no changes from prior assessment, pt ambulated to BR to void without issue, call ghosh in reach
[2024-06-21 05:40] LABS: Hematocrit 38.3 % (37.0-47.0); Hemoglobin 13.3 g/dL (12.0-16.0); Mean Corp Hgb Conc. 34.7 g/dL (33.0-37.0); Mean Corpuscular Hgb 31.1 pg (27.0-31.0); Mean Corpuscular Volume 89.5 fL (81.0-99.0); Platelet Count 244 10^3/uL (130-400); Red Blood Cell Count 4.28 10^6/uL (4.20-5.40); Red Cell Dist. Width 12.6 % (11.5-14.5); White Blood Cell Count 7.6 10^3/uL (4.8-10.8)
--- NOTE | 2024-06-21 06:04 | PTCARENOTE ---
no changes from prior assessment, neuro assessment remain unchanged, see flow sheet, K pad applied to neck per orders, call ghosh in reach
[2024-06-21 06:07] LABS: ALT (SGPT) 21 U/L (0-35); AST (SGOT) 25 U/L (14-36); Albumin 4.6 g/dl (3.5-5.0); Alkaline Phosphatase 92 U/L (38-126); Blood Urea Nitrogen 17 mg/dl (7-17); Calcium 9.2 mg/dl (8.4-10.2); Carbon Dioxide 26 mmol/L (22-30); Chloride 103 mmol/L (98-107); Estimated Creatinine Clearance 61 ml/min; Glucose 203 mg/dl (70-99); Potassium 4.1 mmol/L (3.5-5.1); Sodium 139 mmol/L (135-145); Total Bilirubin 0.7 mg/dl (0.2-1.3); eGFR > 60.00
[2024-06-21] MEDS: PRAVACHOL 40 MG PO (07:22)
[2024-06-21] MEDS: PROTONIX 40 MG PO (07:22)
[2024-06-21] MEDS: DIOVAN 160 MG PO (07:22)
[2024-06-21] MEDS: NOVOLOG FLEXPEN-MODERATE RESISTANCE 1 UNITS SC (07:38)
[2024-06-21 07:48] LABS: Glucose - Point of Care 194 mg/dl (70-99)
--- NOTE | 2024-06-21 07:49 | PTCARENOTE ---
report received, assessments per work list. hand off NIH completed.
--- NOTE | 2024-06-21 08:20 | W.PN.HOSP.TC ---
Today's Communication/Plan
-
-Follow Vitals, BPs
-Brain MRI awaiting
Assessment / Plan
Assessment / Plan
Impression: 84y F with PMH of for DM-II, dyslipidemia, GERD, Sicca syndrome, skin cancer and diverticular disease who presents to ED complaining of vision changes on her right eye, nausea and headache.
#Intracranial Hemorrhage possibly secondary to hypertension
-Following at ICU for further evaluation / close monitoring.
-Neurology on board
-Stat head CT:Overall stable left thalamic lacunar hemorrhage.
-Neurosurgery/case discussed -consulted at admission
-Avoid antiplatelets, anticoagulants given CT findings
-Continue serial neurologic exams-can downgrade frequency if patient stable in 24 hours
-Appreciate PT / OT / ST assessment
#Hypertensive Emergency complicated with Intracranial Hemorrhage
-Given labetalol at ER
-Nicardipine given to keep SBP under 140 over the night
-Continue valsartan PO
-NH ed Nicardipine gtt on 06/20
-Monitor blood pressure
DM-II
-Recommended to continue Metformin
-Started on 10U qhs long acting insulin
-MDISS given high sugar levels and recent A1C% of 8.5%
Diet: Cholesterol-lowering/diabetic diet
DVT Prophylaxis: SCDs
Code Status: Full
Anticipated Discharge: 24 - 48 hours
Subjective/Interval History
-
Date of Service: June 21, 2024
Patient reports feeling well and denies any other problems.
Objective Data
-
Labs:
Laboratory Results
06/21/24
05:18
WBC 7.6
Hgb 13.3
Hct 38.3
Plt Count 244
Sodium 139
Potassium 4.1
Chloride 103
Carbon Dioxide 26
BUN 17
Creatinine 0.5 L
Glucose 203 H
Calcium 9.2
Total Bilirubin 0.7
AST 25
ALT 21
Alkaline Phosphatase 92
Vital Signs:
Vital Signs
Temp Pulse Resp BP Pulse Ox
97.8 F 88 23 153/85 95
06/21/24 07:54 06/21/24 07:22 06/21/24 07:00 06/21/24 07:22 06/21/24 07:45
I&O
06/20/24 06/21/24 06/22/24
06:59 06:59 06:59
Intake Total 362.5 / 425.0 1420.0 / 1420.0
Balance 362.5 / 425.0 1420.0 / 1420.0
Review of Systems
-
History Source: Patient
Constitutional: Reports No Symptoms
EENT: Reports No Symptoms Reported and Other (See HPI)
Respiratory: Reports No Symptoms
Cardiac: Reports No Symptoms
Abdomen/GI: Reports No Symptoms
Genitourinary: Reports No Symptoms
Musculoskeletal: Reports No Symptoms
Skin: Reports No Symptoms
Neuro: Reports Other (See HPI)
Physical Exam
-
General: Well Developed, Well Nourished, Comfortable and Conversant
HEENT: Normocephalic, Atraumatic and Other (Hemianopsia on right lower quadrant area)
Respiratory: Clear to Auscultation
Cardiac: Regular Rhythm and S1/S2
GI: Soft, Nontender and Nondistended
Musculoskeletal: No Clubbing, No Cyanosis and No Edema
Neuro: Awake, Alert, Oriented, AO x 3 and Nonfocal/Grossly Intact
Psych: Calm
--- NOTE | 2024-06-21 10:54 | W.PN.INTV ---
Today's Communication / Plan
Recommendations
BP control for goal of 120-140mmHg
Brain MRI
downgrade if wnl q1hr neuro checks for 24 hours
Assessment
-
ASSESSMENT:
84 year old female with acute vision changes <24 hours
Left Thalamic Intraparenchymal Hemorrhage
Hypertensive Emergency
Hyperlipidemia
NIDDM
GERD
PLAN:
Differentials for ICH include amyloid microangiopathy vs. hypertensive. Patient not on blood thinners
Repeat CT imaging showed stable hemorrhage -- will go for MRI today w/ PO ativan
Neuro following, appreciate recs.
Off Cardene ggt, on Valsartan 160mg with BP improvement into the 140s
Long acting insulin 10U qhs, will add 3U AC and continue to check POC glucose
C/w MDISS given sugars and recent A1C% of 8.5%
Restarted on pravastatin
Cholesterol lowering-diabetic diet
Can likely downgrade after 24hr of wnl neuro checks
DVT PPx: SCDs, avoid antiplatelets/anticoagulation
Code Status: Full Code
Subjective Dataa
Subjective Data
Date of Service:
Date of Service: June 21, 2024
Chief Complaint: [employer] Follow Up
Subjective:
Feeling the same this morning, no acute complaints or overnight events. She is still having a R visual field deficit/blurry vision.
Review of Systems
Neuro: Other (blurry vision)
Objective Data
Data Reviewed
Vital Signs / I&O / Oxygen:
Vital Signs
Temp Pulse Resp BP Pulse Ox
97.8 F 87 13 141/71 96
06/21/24 07:54 06/21/24 10:00 06/21/24 09:00 06/21/24 10:00 06/21/24 10:00
Intake and Output
06/20/24 06/21/24 06/22/24
06:59 06:59 06:59
Intake Total 362.5 / 425.0 1420.0 / 1420.0 240 / 240
Balance 362.5 / 425.0 1420.0 / 1420.0 240 / 240
SaO2 96
Nasal Cannula flow liters per 2
minute
Labs/Micro/Reports
Lab Data
06/21/24 05:18
06/21/24 05:18
--- NOTE | 2024-06-21 11:40 | W.PN.NEURO.1 ---
Today's Communication / Plan
-
.
Subjective/Objective
Subjective Data
Date of Service: June 21, 2024
Neurology follow-up note
24-hour events, intermittently tachycardic, systolic blood pressure 140�150s, afebrile.
Ms. Edmondson states that her visual symptoms have improved however she still continues to have difficulties with reading. No reports of headaches or right-sided weakness or numbness.
Repeat CT showed stable left thalamic ICH.
Hemoglobin A1c�8.5, LDL�85.
Off Cardene drip.
PMH: L thalamic ICH(06/2024), DLP, DM, GERD, FANG, endometriosis, IBS, vitamin D deficiency
PSH: Bilateral cataract surgery, , hysterectomy, breast biopsy, cystoscopy, partial oophorectomy, Mohs procedure
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
All: Sulfa, penicillin, Tetracycline
ROS: Constitutional: Negative. Negative for chills, fever and unexpected weight change.
HENT: Positive for hearing impairment
Eyes: Positive for visual disturbance.
Respiratory: Negative for cough, choking and shortness of breath.
Cardiovascular: Negative for chest pain, palpitations and leg swelling.
Gastrointestinal: Negative for abdominal pain and vomiting.
Endocrine: Negative. Negative for cold intolerance.
Genitourinary: Negative for dysuria, flank pain and urgency.
Musculoskeletal: Negative for back pain, gait problem, neck pain and neck stiffness.
Skin: Negative for rash.
Allergic/Immunologic: Negative. Negative for immunocompromised state.
Neurological: Negative for dizziness, tremors, seizures, speech difficulty, numbness and headaches.
Psychiatric/Behavioral: Negative for behavioral problems, confusion and hallucinations.
General: Well developed. In no acute distress.
Cardio: Regular rate and rhythm without murmur. Extremities are without cyanosis or edema.
Neuro:
Mental Status: Alert, oriented to person, place, time. Impaired attention. Follows complex requests across the midline. Fluent.
Cranial Nerves: Pupils are equally round, surgical. EOMs full. Visual arias full to confrontation. No ptosis. No nystagmus. V1-V3 intact to light touch and pinprick bilaterally, symmetric. Face symmetric. Impaired hearing AU. The palate
elevated well. SCMs and traps 5/5. Tongue midline. No dysarthria.
Motor: Normal bulk and tone. No pronator or arm drift. Strength 5/5 throughout. No clonus.
Coordination: No dysmetria, symmetric action hand tremor
Gait: deferred
Assessment and Plan:
I. 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 ICH score-1. Mortality rate 13 %.
II. Hypertensive emergency
III. FANG, action hand tremor
- Telemetry monitoring
- Brain MRI without fang with sedation
- Optimize glycemic control
- TTE
- Start Lipitor 40 mg once a day
- No antiplatelets or anticoagulants
- SCD/VANESSA
I personally reviewed all radiology and labs along with past medical records pertinent to current medical problems. Total time spent in patient care is 35 minutes.
Thank you for allowing us to participate in the care of this patient. We will continue to follow. Please do not hesitate to contact us with any questions or concerns
Objective Data
Vital Signs
Temp Pulse Resp BP Pulse Ox
36.6 C 107 19 152/82 96
06/21/24 07:54 06/21/24 11:14 06/21/24 11:14 06/21/24 11:14 06/21/24 10:00
Lab Results
06/21/24 05:18
06/21/24 05:18
PT 12.4 Sec (11.4-14.6) 06/20/24 00:04
INR 0.89 06/20/24 00:04
APTT 27.2 Sec (23.4-35.0) 06/20/24 00:04
Sodium 139 mmol/L (135-145) 06/21/24 05:18
Potassium 4.1 mmol/L (3.5-5.1) 06/21/24 05:18
BUN 17 mg/dl (7-17) 06/21/24 05:18
Glucose 203 mg/dl (70-99) H 06/21/24 05:18
Calcium 9.2 mg/dl (8.4-10.2) 06/21/24 05:18
Phosphorus 3.6 mg/dl (2.5-4.5) 06/20/24 04:29
LDL Cholesterol, Calc 85 mg/dl 06/20/24 04:29
Patient Allergies
Penicillins Allergy (Verified 11/04/14 12:55)
Unknown
Sulfa (Sulfonamide Antibiotics) Allergy (Verified 11/04/14 12:55)
Swelling
acromycin Allergy (Uncoded 11/04/14 12:55)
Swelling
Vital Signs and Labs
-
Vital Signs and Labs:
Vital Signs
Temp Pulse Resp BP Pulse Ox
36.6 C 107 19 152/82 96
06/21/24 07:54 06/21/24 11:14 06/21/24 11:14 06/21/24 11:14 06/21/24 10:00
Lab Results
06/21/24 05:18
06/21/24 05:18
PT 12.4 Sec (11.4-14.6) 06/20/24 00:04
INR 0.89 06/20/24 00:04
APTT 27.2 Sec (23.4-35.0) 06/20/24 00:04
Sodium 139 mmol/L (135-145) 06/21/24 05:18
Potassium 4.1 mmol/L (3.5-5.1) 06/21/24 05:18
BUN 17 mg/dl (7-17) 06/21/24 05:18
Glucose 203 mg/dl (70-99) H 06/21/24 05:18
Calcium 9.2 mg/dl (8.4-10.2) 06/21/24 05:18
Phosphorus 3.6 mg/dl (2.5-4.5) 06/20/24 04:29
LDL Cholesterol, Calc 85 mg/dl 06/20/24 04:29
Medications
-
Medications:
Generic Name Dose Route Start Last Admin
Trade Name Freq PRN Reason Stop Dose Admin
Acetaminophen 650 mg 06/20/24 03:41 06/20/24 20:43
Acetaminophen (Oral Solution) 650 Mg/20.3 Ml Cup PO 07/18/24 03:40 650 mg
Q4HPRN PRN Administration
mild pain/fever>100.3
Nicardipine/Sodium Chloride 40 mg in 200 mls @ 0 mls/hr 06/20/24 01:00 06/20/24 09:58
Cardene IV 200 mls
PER PROTOCOL STEPHANIE Administration
Protocol
Per Protocol
Insulin Glargine 10 units/ 0.1 mls @ 0 mls/hr 06/20/24 22:00 06/20/24 20:43
Device SC 07/18/24 21:59 0.1 mls
HS STEPHANIE Administration
As Directed
Insulin Aspart 0 units 06/20/24 11:30 06/21/24 07:38
Insulin Aspart Moderate Resistance 300 Units/3 Ml Pen.Injctr SC 07/18/24 11:29 1 units
AC STEPHANIE Administration
Protocol
Insulin Aspart 3 units 06/21/24 11:30
Insulin Aspart (100 Units/Ml) 3 Ml Flexpen SC 07/19/24 11:29
AC STEPHANIE
Lorazepam 0.5 mg 06/21/24 09:14
Lorazepam 0.5 Mg Tablet PO 06/21/24 09:15
NOW STA
Pantoprazole Sodium 40 mg 06/20/24 09:00 06/21/24 07:22
Pantoprazole 40 Mg Delayed Release Tablet PO 07/18/24 08:59 40 mg
DAILY STEPHANIE Administration
Pravastatin Sodium 40 mg 06/20/24 12:00 06/21/24 07:22
Pravastatin 40 Mg Tablet PO 07/18/24 11:59 40 mg
DAILY STEPHANIE Administration
Sodium Chloride 0 flush 06/20/24 02:00
Sodium Chloride 0.9% (Flush) Syringe IV 07/18/24 01:59
PER PROTOCOL STEPHANIE
Valsartan 160 mg 06/20/24 12:00 06/21/24 07:22
Valsartan 160 Mg Tablet PO 07/18/24 11:59 160 mg
DAILY STEPHANIE Administration
Home Medications
-
Home Medications
ascorbic acid (vitamin C) 500 mg capsule,extended release (Vitamin C) 500 mg PO DAILY 11/11/09
multivitamin with folic acid 400 mcg tablet (Tab-A-Jennifer) 1 tab PO DAILY 11/11/09
omeprazole magnesium 20 mg tablet,delayed release (Prilosec OTC) 40 mg PO DAILY 11/11/09
pravastatin 40 mg tablet (Pravachol) 40 mg PO DAILY 11/11/09
coenzyme Q10 30 mg capsule 30 mg PO DAILY 06/20/24
metformin 1,000 mg tablet 1,000 mg PO BID 06/20/24
[2024-06-21 11:44] LABS: Glucose - Point of Care 357 mg/dl (70-99)
[2024-06-21] MEDS: NOVOLOG FLEXPEN 3 UNITS SC ×2 (11:49→17:37)
[2024-06-21] MEDS: NOVOLOG FLEXPEN-MODERATE RESISTANCE 9 UNITS SC (11:50)
--- NOTE | 2024-06-21 12:03 | PTCARENOTE ---
reassessed. ambulated in hallway with PT. hospitalist in, updated with elevated blood sugars. patient anxious about pending MRI. prn ativan dose ordered. reassurance given.
[2024-06-21] MEDS: ATIVAN 0.5 MG PO (12:10)
--- NOTE | 2024-06-21 12:44 | W.PN.UPDATE ---
Addendum entered and electronically signed by Geneva Bunn MD 06/21/24 16:12:
Subacute hemorrhagic infarct at the junction of the inferior margin of the left thalamus and left cerebral peduncle. Mild edema. No significant mass effect.
TRansfer to tele
Original Note:
Update Note
Progress Note Update
I saw and evaluated the patient. I reviewed the resident�s note and agree with findings and plan as documented in the resident�s note except for changes in my documentation
84-year-old female presented with vision changes sudden onset of colorful shapes
CT head reviewed by me-left thalamus hemorrhage
Chest x-ray-no acute cardiopulmonary process
Awake alert oriented x 3 conversant
Right lower quadrant hemianopsia noted
Cranial nerves otherwise unremarkable
Motor and sensory exam normal
Cardiovascular system S1-S2 appreciated
Chest clear to auscultation
Abdomen soft and nontender
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
Possibly related to hypertension
Monitor for any symptoms of elevated intracranial pressure
Head of bed elevation to 30 degrees
Keep blood pressure less than 140 mmHg-Off Cardene gtt.
Keep sodium greater than 135
Neurosurgery evaluation
MRI of the brain to rule out any underlying mass or stroke-Pending
Patient is aware that she should not be driving until cleared by occupational therapy or ophthalmology. She will schedule an appointment with ophthalmology. She had an appointment already to check field vision testing which got canceled when she
got admitted.
# Diabetes-hemoglobin A1c-8.5
Avoid too tight control at age 84
Ate banana , cereal and toast for BF and sugars up.
Patient states that she exercises more walks on a treadmill every day and also used to do some weight exercises at home when she is not doing. Also states that her diet is different here.
Restart metformin
Continue Accu-Cheks and sliding scale coverage
# Hypertension-we need to start oral antihypertensives. Patient was on Diovan in the past and then needed to decrease the dose in half and then later on her PCP discontinued it as the blood pressure did not need it.
Continue Diovan at 160 mg/day
# Hyperlipidemia- statin
# GERD-continue PPI
# Diverticulosis
# SCDs for DVT prophylaxis
# Full code
D/W Nursing
Part of this note was created using voice recognition system. Occasional wrong word or��sound alike� substitutions may have inadvertently occurred due to the inherent limitations of voice recognition software. If noted kindly bring it to my
attention for correction.
--- NOTE | 2024-06-21 14:18 | PTCARENOTE ---
taken and returned from MRI without issue. blood pressures per work list. Hospitalist updated with elevated BP, orders pending
--- NOTE | 2024-06-21 16:03 | PTCARENOTE ---
Addendum entered by Dipti Benjamin RN 06/21/24 16:20:
orders received. downgrade to tele level of care
Original Note:
reassessed. no changes. c/o neck pain but refusing K pad and tylenol
[2024-06-21 17:24] LABS: Glucose - Point of Care 200 mg/dl (70-99)
[2024-06-21] MEDS: GLUCOPHAGE 500 MG PO (17:34)
[2024-06-21] MEDS: LIPITOR 40 MG PO (17:34)
[2024-06-21] MEDS: NOVOLOG FLEXPEN-MODERATE RESISTANCE 3 UNITS SC (17:36)
--- NOTE | 2024-06-21 18:06 | PTCARENOTE ---
oob to chair. remains forgetful. repeats questions often, talkative and mildly anxious. unchanged from earlier assessments. family at bedside. updated on plan of care. oob to chair. call ghosh in reach
[2024-06-21 19:06] LABS: TSH Reflex To Free T4 1.98 uIU/ml (0.47-4.68)
[2024-06-21 19:25] LABS: Vitamin B12 420 pg/ml (239-931)
--- NOTE | 2024-06-21 20:00 | PTCARENOTE ---
On assessment pt AAOx3, NIH at shift change was 1 see flow sheet, denies pain and SOB, SR on the monitor, cholesterol lowering/diabetic diet, ambulates to BR with standby assist, call ghosh in reach, family at bedside
[2024-06-21 21:42] LABS: Glucose - Point of Care 203 mg/dl (70-99)
[2024-06-21] MEDS: LANTUS 0.1 UNITS SC (21:47)
[2024-06-21] MEDS: APRESOLINE 5 MG IV (23:12)
[2024-06-22] VITALS (19 sets, daily range): BP systolic 128–182; BP diastolic 56–99; PULSE 95–116; O2SAT 97; BMI 22.2
--- NOTE | 2024-06-22 07:36 | W.PN.HOSP.TC ---
Addendum entered and electronically signed by Geneva Bunn MD 06/22/24 17:02:
called daughter, went to message
Probable discharge tomorrow at this point
Addendum entered and electronically signed by Geneva Bunn MD 06/22/24 16:31:
Echo noted
Patient stated that she will be living with family for the next few days
Case management alerted regarding the need for VNA/home care
Addendum entered and electronically signed by Geneva Bunn MD 06/22/24 16:20:
I saw and evaluated the patient. I reviewed the resident�s note and agree with findings and plan as documented in the resident�s note except for changes in my documentation
84-year-old female presented with vision changes sudden onset of colorful shapes
CT head reviewed by me-left thalamus hemorrhage
Chest x-ray-no acute cardiopulmonary process
Awake alert oriented x 3 conversant
No visual field cut off noted today on exam
Cranial nerves otherwise unremarkable
Motor and sensory exam normal
Cardiovascular system S1-S2 appreciated
Chest clear to auscultation
Abdomen soft and nontender
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
Possibly related to hypertension
Not much field of vision cut off today
Neurosurgery evaluation and neurology evaluation appreciated
MRI of the brain -subacute hemorrhagic infarct at the junction of the inferior margin of the left thalamus and left cerebral peduncle. Mild edema. No mass effect
Patient is aware that she should not be driving until cleared by occupational therapy or ophthalmology. She will schedule an appointment with ophthalmology. She had an appointment already to check field vision testing which got canceled when she
got admitted.
# Diabetes-hemoglobin A1c-8.5
Avoid too tight control at age 84
Patient states that she exercises more walks on a treadmill every day and also used to do some weight exercises at home when she is not doing. Also states that her diet is different here.
She stated that she does not want to take insulin when she goes home. Hold off on Lantus
Restarted metformin 1000 milligram. Add Januvia 50 mg
Continue Accu-Cheks and sliding scale coverage
# Hypertension-we need to start oral antihypertensives. Patient was on Diovan in the past and then needed to decrease the dose in half and then later on her PCP discontinued it as the blood pressure did not need it.
Increase Diovan at 320 mg/day
# Hyperlipidemia- statin
# GERD-continue PPI
# Diverticulosis
# SCDs for DVT prophylaxis
# Full code
D/W Nursing
D/W Neuro
D/W OT
rpt CT in 1-2 weeks to clear for Anticoagulation
She has a blood pressure monitor at home and will monitor blood pressure twice a day. We will also send her with as needed hydralazine twice daily as needed for blood pressure control for now.
Part of this note was created using voice recognition system. Occasional wrong word or��sound alike� substitutions may have inadvertently occurred due to the inherent limitations of voice recognition software. If noted kindly bring it to my
attention for correction.
discharge time over 37 min
Original Note:
Today's Communication/Plan
-
-Valsartan dose increased to 320 mg
-Metformin 1000 mg BID
-Januvia started
Assessment / Plan
Assessment / Plan
Impression: 84y F with PMH of for DM-II, dyslipidemia, GERD, Sicca syndrome, skin cancer and diverticular disease who presents to ED complaining of vision changes on her right eye, nausea and headache.
#Intracranial Hemorrhage possibly secondary to hypertension
-Following at ICU for further evaluation / close monitoring.
-Neurology on board
-Stat head CT:Overall stable left thalamic lacunar hemorrhage.
-Brain MRI:Subacute hemorrhagic infarct at the junction of the inferior margin of the left thalamus and left cerebral peduncle. Mild edema. No significant mass effect.
-Neurosurgery: Case discussed at admission
-ECHO: No intracardiac mass or thrombus formation seen.
-Appreciate PT / OT / ST assessment
#Hypertensive Emergency complicated with Intracranial Hemorrhage
-Monitor blood pressure with a goal to keep SBP<140
-Continue valsartan PO (Dose increased to 320)
-Hydralazine PRN
DM-II
-Hold Metformin for now
-Hgb A1C% of 8.5%
-Continue on 10U qhs long acting insulin pm
-ISS
-Patient is not willing to be on insulin at discharge /Agreed to increase her metformin 1000 mg BID and starting on Januvia 50 mg
#Hyperlipidemia
-Continue statin
Diet: Cholesterol-lowering/diabetic diet
DVT Prophylaxis: SCDs
Code Status: Full
Anticipated Discharge: 24 - 48 hours
Subjective/Interval History
-
Date of Service: June 22, 2024
Patient reports she could not sleep well over the night. Otherwise, no complainings.
Objective Data
-
Vital Signs:
Vital Signs
Temp Pulse Resp BP Pulse Ox
98 F 66 14 128/56 97
06/22/24 03:08 06/22/24 05:42 06/21/24 17:00 06/22/24 05:42 06/21/24 15:30
I&O
06/21/24 06/22/24 06/23/24
06:59 06:59 06:59
Intake Total 1420.0 / 1420.0 900 / 900
Balance 1420.0 / 1420.0 900 / 900
Review of Systems
-
History Source: Patient
EENT: Reports Other (See HPI )
Respiratory: Reports No Symptoms
Cardiac: Reports No Symptoms
Abdomen/GI: Reports No Symptoms
Genitourinary: Reports No Symptoms
Musculoskeletal: Reports No Symptoms
Skin: Reports No Symptoms
Neuro: Reports Other (See HPI )
Physical Exam
-
General: Well Developed, Well Nourished, Comfortable and Conversant
HEENT: Normocephalic and Atraumatic
Respiratory: Clear to Auscultation
Cardiac: Regular Rhythm and S1/S2
GI: Soft and Nontender
Musculoskeletal: No Clubbing and No Cyanosis
Skin: Warm
Neuro: Awake, Alert, Oriented, AO x 3 and Other (No motor or sensory deficit on exam)
Psych: Calm
[2024-06-22 07:37] LABS: Glucose - Point of Care 150 mg/dl (70-99)
[2024-06-22] MEDS: GLUCOPHAGE 500 MG PO (08:22)
[2024-06-22] MEDS: DIOVAN 160 MG PO ×2 (08:22→10:09)
[2024-06-22] MEDS: PROTONIX 40 MG PO (08:23)
[2024-06-22] MEDS: NOVOLOG FLEXPEN-MODERATE RESISTANCE 1 UNITS SC (09:13)
[2024-06-22] MEDS: NOVOLOG FLEXPEN 3 UNITS SC ×3 (09:14→17:37)
--- NOTE | 2024-06-22 10:28 | W.PN.NEURO.1 ---
Today's Communication / Plan
-
.
Subjective/Objective
Subjective Data
Date of Service: June 22, 2024
Neurology follow-up note
Ms. Edmondson reports no complaints. She is eager to go home. No reports of headaches, motor or sensory deficits.
SBP in 150s in am.
Brain MRI�subacute hemorrhagic infarct at the junction of the inferior margin of the left thalamus and left cerebral peduncle. Mild edema. No significant mass effect.
TTE-Interatrial septum is intact with no evidence of shunting by color flow Doppler. No intracardiac mass or thrombus formation seen.
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
PSH: Bilateral cataract surgery, , hysterectomy, breast biopsy, cystoscopy, partial oophorectomy, Mohs procedure
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
All: Sulfa, penicillin, Tetracycline
ROS: Negative for headache, motor or sensory deficits
General: Well developed. In no acute distress.
Cardio: Regular rate and rhythm without murmur. Extremities are without cyanosis or edema.
Neuro:
Mental Status: Alert, oriented to person, place, time. Impaired attention. Follows complex requests across the midline. Fluent.
Cranial Nerves: Pupils are equally round, surgical. EOMs full. Visual arias full to confrontation. No ptosis. No nystagmus. V1-V3 intact to light touch and pinprick bilaterally, symmetric. Face symmetric. Impaired hearing AU. The palate
elevated well. SCMs and traps 5/5. Tongue midline. No dysarthria.
Motor: Normal bulk and tone. No pronator or arm drift. Strength 5/5 throughout. No clonus.
Coordination: No dysmetria, symmetric action hand tremor
Gait: deferred
Assessment and Plan:
I. Acute left thalamic hemorrhagic stroke. Likely etiology�small vessel disease
II. Hypertensive emergency
III. FANG, action hand tremor
- Telemetry monitoring
- Blood pressure goal�normotension
- HbA1c goal < 7, LDL goal < 70
- Continue Lipitor 40 mg once a day
- Repeat CT head in 1-2 weeks before starting antiplatelet therapy
- Please recall neurology services any questions or concerns
- Outpatient neurology follow-up
I personally reviewed all radiology and labs along with past medical records pertinent to current medical problems. Total time spent in patient care is 35 minutes.
Thank you for allowing us to participate in the care of this patient. Please do not hesitate to contact us with any questions or concerns
Objective Data
Vital Signs
Temp Pulse Resp BP Pulse Ox
36.6 C 76 17 164/86 97
06/22/24 07:59 06/22/24 08:12 06/22/24 08:12 06/22/24 08:12 06/21/24 15:30
Lab Results
06/21/24 05:18
06/21/24 05:18
PT 12.4 Sec (11.4-14.6) 06/20/24 00:04
INR 0.89 06/20/24 00:04
APTT 27.2 Sec (23.4-35.0) 06/20/24 00:04
Sodium 139 mmol/L (135-145) 06/21/24 05:18
Potassium 4.1 mmol/L (3.5-5.1) 06/21/24 05:18
BUN 17 mg/dl (7-17) 06/21/24 05:18
Glucose 203 mg/dl (70-99) H 06/21/24 05:18
Calcium 9.2 mg/dl (8.4-10.2) 06/21/24 05:18
Phosphorus 3.6 mg/dl (2.5-4.5) 06/20/24 04:29
LDL Cholesterol, Calc 85 mg/dl 06/20/24 04:29
Vitamin B12 Cancelled 06/21/24 11:46
Patient Allergies
Penicillins Allergy (Verified 11/04/14 12:55)
Unknown
Sulfa (Sulfonamide Antibiotics) Allergy (Verified 11/04/14 12:55)
Swelling
acromycin Allergy (Uncoded 11/04/14 12:55)
Swelling
Vital Signs and Labs
-
Vital Signs and Labs:
Vital Signs
Temp Pulse Resp BP Pulse Ox
36.4 C 114 17 150/83 97
06/22/24 11:30 06/22/24 11:26 06/22/24 08:12 06/22/24 11:26 06/21/24 15:30
Lab Results
06/21/24 05:18
06/21/24 05:18
PT 12.4 Sec (11.4-14.6) 06/20/24 00:04
INR 0.89 06/20/24 00:04
APTT 27.2 Sec (23.4-35.0) 06/20/24 00:04
Sodium 139 mmol/L (135-145) 06/21/24 05:18
Potassium 4.1 mmol/L (3.5-5.1) 06/21/24 05:18
BUN 17 mg/dl (7-17) 06/21/24 05:18
Glucose 203 mg/dl (70-99) H 06/21/24 05:18
Calcium 9.2 mg/dl (8.4-10.2) 06/21/24 05:18
Phosphorus 3.6 mg/dl (2.5-4.5) 06/20/24 04:29
LDL Cholesterol, Calc 85 mg/dl 06/20/24 04:29
Vitamin B12 Cancelled 06/21/24 11:46
Medications
-
Medications:
Generic Name Dose Route Start Last Admin
Trade Name Freq PRN Reason Stop Dose Admin
Acetaminophen 650 mg 06/20/24 03:41 06/20/24 20:43
Acetaminophen (Oral Solution) 650 Mg/20.3 Ml Cup PO 07/18/24 03:40 650 mg
Q4HPRN PRN Administration
mild pain/fever>100.3
Atorvastatin Calcium 40 mg 06/21/24 18:00 06/21/24 17:34
Atorvastatin (Lipitor) 40 Mg Tablet PO 07/19/24 17:59 40 mg
QPM STEPHANIE Administration
Hydralazine HCl 5 mg 06/21/24 15:01 06/21/24 23:12
Hydralazine 20 Mg/Ml Vial IV 07/19/24 15:00 5 mg
Q6HPRN PRN Administration
SBP over 150 mm Hg
Insulin Glargine 10 units/ 0.1 mls @ 0 mls/hr 06/20/24 22:00 06/21/24 21:47
Device SC 07/18/24 21:59 0.1 mls
HS STEPHANIE Administration
As Directed
Insulin Aspart 0 units 06/20/24 11:30 06/22/24 09:13
Insulin Aspart Moderate Resistance 300 Units/3 Ml Pen.Injctr SC 07/18/24 11:29 1 units
AC STEPHANIE Administration
Protocol
Insulin Aspart 3 units 06/21/24 11:30 06/22/24 09:14
Insulin Aspart (100 Units/Ml) 3 Ml Flexpen SC 07/19/24 11:29 3 units
AC STEPHANIE Administration
Metformin HCl 1,000 mg 06/22/24 17:00
Metformin 1000 Mg Regular Release Tablet PO 07/20/24 16:59
BID@0800,1700 STEPHANIE
Non-Formulary Medication 50 mg 06/22/24 12:18
Jardiance PO 06/22/24 12:19
DAILY ONE
Pantoprazole Sodium 40 mg 06/20/24 09:00 06/22/24 08:23
Pantoprazole 40 Mg Delayed Release Tablet PO 07/18/24 08:59 40 mg
DAILY STEPHANIE Administration
Sodium Chloride 0 flush 06/20/24 02:00
Sodium Chloride 0.9% (Flush) Syringe IV 07/18/24 01:59
PER PROTOCOL STEPHANIE
Valsartan 320 mg 06/22/24 09:15
Valsartan 160 Mg Tablet PO 07/18/24 11:59
DAILY STEPHANIE
Home Medications
-
Home Medications
ascorbic acid (vitamin C) 500 mg capsule,extended release (Vitamin C) 500 mg PO DAILY Supplement 11/11/09
multivitamin with folic acid 400 mcg tablet (Tab-A-Jennifer) 1 tab PO DAILY Supplement 11/11/09
omeprazole magnesium 20 mg tablet,delayed release (Prilosec OTC) 40 mg PO DAILY Gastrointestinal Issue 11/11/09
pravastatin 40 mg tablet (Pravachol) 40 mg PO DAILY High Cholesterol 11/11/09
coenzyme Q10 30 mg capsule 30 mg PO DAILY Supplement 06/20/24
metformin 1,000 mg tablet 1,000 mg PO BID Diabetes 06/20/24
[2024-06-22 13:09] LABS: Glucose - Point of Care 228 mg/dl (70-99)
[2024-06-22] MEDS: NOVOLOG FLEXPEN-MODERATE RESISTANCE 3 UNITS SC (13:14)
[2024-06-22] MEDS: JANUVIA 50 MG PO (14:39)
--- NOTE | 2024-06-22 17:00 | CM ---
Patient seen bedside.
IA completed.
Patient lives alone with her dog.
Independent prior to admission, will use a walking sick that a friend made for her.
Patient has 2 daughters who are alternating watching her dog.
Patient plans on home at d/c, daughter will transport.
Patient wants to know when she can be discharged.
PT recommending outpatient therapy. Patient denies home care needs.
Per patient her daughter and granddaughter will stay with her after discharge to assist.
IMM completed.
PCP: Dr Garcia
pharmacy: [facility]
Plan: home, no needs anticipated.
[2024-06-22 17:10] LABS: Glucose - Point of Care 159 mg/dl (70-99)
[2024-06-22] MEDS: APRESOLINE 10 MG PO (17:34)
[2024-06-22] MEDS: GLUCOPHAGE 1000 MG PO (17:34)
[2024-06-22] MEDS: LIPITOR 40 MG PO (17:34)
[2024-06-22] MEDS: NOVOLOG FLEXPEN-MODERATE RESISTANCE 300 UNITS SC (17:35)
[2024-06-22] MEDS: APRESOLINE 5 MG IV (19:32)
[2024-06-22] MEDS: MILK OF MAGNESIA 30 ML PO (19:33)
[2024-06-22] MEDS: FLUSH (NSS) 2 FLUSH IV (19:34)
--- NOTE | 2024-06-22 21:01 | PTCARENOTE ---
Report received from previous shift RN [id number]. Pt sitting in bed, AAO3, anxious. Tandem NIH performed w offgoing shift RN, unchanged from prior assessment (see worklist flowsheet for full neuro details). Chronic neck pain reported, Kpad in room for
prn use. Lung sounds are clear, denies SOB/cough, pox 96% on room air. Telemetry rhythm reveals SR-ST, HR 90-100's, trace b/l lower extr edema noted, palpable peripheral pulses present. +BS, abdomen round/distended, +appetite. Pt ordered 1x MOM,
administered per order. Pt OOB to BR self, call ghosh within reach. Skin intact. R AC int leaking, will D/C. R w int flushed and patent, capped.
PRN Hydralazine administered per order parameters 1922. Repeat BP 153/74.
Pt with telemetry transfer orders. Report called to ARNALDO Mccabe. All belongings to be packed and transferred w pt. Pt aware of transfer.
--- NOTE | 2024-06-22 21:40 | PTCARENOTE ---
Received patient from ICU via wheelchair. Patient stood and pivoted to bed with minimal assistance. AAOx3, anxious. NIH 1, patient continues with right vision field cut. Oriented patient to room and placed call ghosh within reach.
[2024-06-22] MEDS: NORVASC 2.5 MG PO (22:07)
[2024-06-23 00:03] LABS: Glucose - Point of Care 134 mg/dl (70-99)
[2024-06-23 00:07] VITALS: BP 150/88
[2024-06-23 03:59] VITALS: BP 160/97
[2024-06-23] MEDS: APRESOLINE 5 MG IV (04:08)
[2024-06-23 05:59] VITALS: BP 146/72
[2024-06-23 07:41] LABS: Hematocrit 38.8 % (37.0-47.0); Hemoglobin 13.5 g/dL (12.0-16.0); Mean Corp Hgb Conc. 34.8 g/dL (33.0-37.0); Mean Corpuscular Hgb 30.9 pg (27.0-31.0); Mean Corpuscular Volume 88.8 fL (81.0-99.0); Mean Platelet Volume 11.2 fL (7.4-10.4); Platelet Count 229 10^3/uL (130-400); Red Blood Cell Count 4.37 10^6/uL (4.20-5.40); Red Cell Dist. Width 12.5 % (11.5-14.5); White Blood Cell Count 7.7 10^3/uL (4.8-10.8)
[2024-06-23 07:45] VITALS: BP 171/85
[2024-06-23 08:23] LABS: ALT (SGPT) 20 U/L (0-35); AST (SGOT) 26 U/L (14-36); Albumin 3.9 g/dl (3.5-5.0); Alkaline Phosphatase 80 U/L (38-126); Blood Urea Nitrogen 24 mg/dl (7-17); Calcium 9.4 mg/dl (8.4-10.2); Carbon Dioxide 26 mmol/L (22-30); Chloride 103 mmol/L (98-107); Estimated Creatinine Clearance 61 ml/min; Glucose 165 mg/dl (70-99); Potassium 4.2 mmol/L (3.5-5.1); Sodium 137 mmol/L (135-145); Total Bilirubin 0.5 mg/dl (0.2-1.3); Total Protein 6.4 g/dl (6.3-8.2); eGFR > 60.00
[2024-06-23 08:26] LABS: Glucose - Point of Care 162 mg/dl (70-99)
[2024-06-23] MEDS: NORVASC PO (09:03)
[2024-06-23] MEDS: GLUCOPHAGE 1000 MG PO (09:05)
[2024-06-23] MEDS: JANUVIA 50 MG PO (09:05)
[2024-06-23] MEDS: PROTONIX 40 MG PO (09:05)
[2024-06-23] MEDS: DIOVAN 320 MG PO (09:05)
[2024-06-23] MEDS: NORVASC 2.5 MG PO (09:05)
[2024-06-23] MEDS: NOVOLOG FLEXPEN-MODERATE RESISTANCE 1 UNITS SC (09:07)
[2024-06-23] MEDS: NOVOLOG FLEXPEN 3 UNITS SC ×2 (09:08→12:30)
[2024-06-23 11:30] VITALS: BP 148/76
[2024-06-23 12:25] LABS: Glucose - Point of Care 220 mg/dl (70-99)
[2024-06-23] MEDS: NOVOLOG FLEXPEN-MODERATE RESISTANCE 3 UNITS SC (12:30)
--- NOTE | 2024-06-23 12:46 | W.PN.HOSP.TC ---
Today's Communication/Plan
-
DIscharge
Assessment / Plan
Assessment / Plan
84-year-old female presented with vision changes sudden onset of colorful shapes
MRI- Subacute hemorrhagic infarct at the junction of the inferior margin of the left thalamus and left cerebral peduncle. Mild edema. No significant mass effect.
Chest x-ray-no acute cardiopulmonary process
Awake alert oriented x 3 conversant
Right lower quadrant hemianopsia better
Cranial nerves otherwise unremarkable
Motor and sensory exam normal
Cardiovascular system S1-S2 appreciated
Chest clear to auscultation
Abdomen soft and nontender
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
Possibly related to hypertension
Monitor for any symptoms of elevated intracranial pressure
Head of bed elevation to 30 degrees
Keep blood pressure less than 140 mmHg-Off Cardene gtt.
Sodium stable
Neurosurgery evaluation appreciated
MRI of the brain - with ischemic stroke
Patient is aware that she should not be driving until cleared by occupational therapy or ophthalmology. She will schedule an appointment with ophthalmology. She had an appointment already to check field vision testing which got canceled when she
got admitted.
# Diabetes-hemoglobin A1c-8.5
Avoid too tight control at age 84
Patient states that she exercises more walks on a treadmill every day and also used to do some weight exercises at home when she is not doing. Also states that her diet is different here .
Restarted metformin and continue Januvia
Sugars OK
Continue Accu-Cheks and sliding scale coverage
# Hypertension-Continue Diovan at 320 mg/day and Norvasc 5 mg HS with Prn Hydralazine . Discussed with nursing. Patient did not have any medicine in between the 2 blood pressure readings this morning which makes me think that the metal plater
reading at 7:00 was wrong. It came down on its own. Blood pressure remained stable with the current regimen .
# Hyperlipidemia- statin
# GERD-continue PPI
# Diverticulosis
# SCDs for DVT prophylaxis
# Full code
D/W Nursing
More than 30 minutes spent in discharge including
Final examination of the patient
Summarizing hospital stay
Instructions for continuing care to all relevant caregivers
Preparation of discharge records, prescriptions, and referral forms
Total time spent (in minutes): 35 min
Part of this note was created using voice recognition system. Occasional wrong word or��sound alike� substitutions may have inadvertently occurred due to the inherent limitations of voice recognition software. If noted kindly bring it to my
attention for correction.
Anticipated Discharge: Today
Subjective/Interval History
-
Date of Service: June 23, 2024
Objective Data
-
Labs:
Laboratory Results
06/23/24
06:55
WBC 7.7
Hgb 13.5
Hct 38.8
Plt Count 229
Sodium 137
Potassium 4.2
Chloride 103
Carbon Dioxide 26
BUN 24 H
Creatinine 0.6
Glucose 165 H
Calcium 9.4
Total Bilirubin 0.5
AST 26
ALT 20
Alkaline Phosphatase 80
Vital Signs:
Vital Signs
Temp Pulse Resp BP Pulse Ox
97.7 F 87 16 148/76 98
06/23/24 11:30 06/23/24 11:30 06/23/24 11:30 06/23/24 11:30 06/23/24 11:30
I&O
06/22/24 06/23/24 06/24/24
06:59 06:59 06:59
Intake Total 900 / 900 480 / 480
Balance 900 / 900 480 / 480
--- NOTE | 2024-06-23 13:10 | W.DS.TRANS ---
Addendum entered and electronically signed by Geneva Bunn MD 06/24/24 18:03:
Dictation- [id number]
Original Note:
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
-
Discharge Instructions:
Discharge Diagnosis/Procedures Right subthalamic intracerebral hemorrhage
Diabetes
Hypertension
High cholesterol
Diet Diabetic, Carb Controlled,2 Gram Sodium
Activity As tolerated
Driving Restrictions No driving until cleared by ophthalmology
Blood Work Hemoglobin A1c in 3 months. Liver function test
and lipid panel in [address] scan of the head and 1 to 2 weeks to get
started on aspirin if it looks okay
Other Services VN
Instructions:
Stand-Alone Forms:
Changes to Home Medications: Yes
Discharge Medications:
DC Medications w/original date entered in [employer]
ascorbic acid (vitamin C) 500 mg capsule,extended release (Vitamin C) 500 mg PO DAILY Supplement 11/11/09
multivitamin with folic acid 400 mcg tablet (Tab-A-Jennifer) 1 tab PO DAILY Supplement 11/11/09
omeprazole magnesium 20 mg tablet,delayed release (Prilosec OTC) 40 mg PO DAILY Gastrointestinal Issue 11/11/09
coenzyme Q10 30 mg capsule 30 mg PO DAILY Supplement 06/20/24
metformin 1,000 mg tablet 1,000 mg PO BID Diabetes 06/20/24
atorvastatin 40 mg tablet 40 mg PO QPM Stroke #30 tabs 06/22/24
hydralazine 10 mg tablet 10 mg PO BIDPRN PRN SBP over 150 mm hg #60 tabs 06/22/24
sitagliptin phosphate 50 mg tablet (Januvia) 50 mg PO DAILY Diabetes #50 tabs 06/22/24
valsartan 160 mg tablet 320 mg (2 x 160 mg) PO DAILY Blood pressure #30 tabs 06/22/24
amlodipine 5 mg tablet 5 mg PO QPM Blood pressure #30 tabs 06/23/24
Home Medication Changes
new
atorvastatin 40 mg tablet 40 mg PO QPM Stroke #30 tabs 06/22/24
hydralazine 10 mg tablet 10 mg PO BIDPRN PRN SBP over 150 mm hg #60 tabs 06/22/24
sitagliptin phosphate 50 mg tablet (Januvia) 50 mg PO DAILY Diabetes #50 tabs 06/22/24
valsartan 160 mg tablet 320 mg (2 x 160 mg) PO DAILY Blood pressure #30 tabs 06/22/24
amlodipine 5 mg tablet 5 mg PO QPM Blood pressure #30 tabs 06/23/24
Pending Results: No
--- NOTE | 2024-06-23 13:36 | CM ---
MD entered order for discharge.
Spoke with pt she said she was ready for discharge today.
Dgt Coni will drive her home today.
She said one of her family members will be staying with her [place].
IMM reviewed signed on chart.
Offered VN she declined at this time.PT recommended out pt PT . She was not sure she wanted out pt PT at this time.
PLAN Home no needs
[2024-06-23 14:10] VITALS: BP 155/86
--- NOTE | 2024-06-24 18:12 | W.PN.UPDATE ---
Update Note
Progress Note Update
Called patient's daughter back today as I was told Januvia was not covered by insurance. Advised to try [facility] if she is going to fill the prescription. I was also going to give Dr. Garcia's office a call tomorrow. Daughter said that patient was
reading the side effects of Januvia and she wants to talk to PCP before she would take it.
Discussed about the rationale why we started it.
But since patient wants to talk to PCP I will defer it to patient and daughter at this point whether they want to fill the prescription or not prior to talking to the PCP.
== END 2024-06-23 15:26 | disposition home or self-care (01) | DRG 304 ==
LOC: 4 EAST ACU 01:40
PROVIDERS: Student in an Organized Health Care Education/Training Program; ADMITTING PHYSICIAN Hospitalist; ATTENDING PHYSICIAN Hospitalist; CONSULT PHYSICIAN Internal Medicine; CONSULT PHYSICIAN Psychiatry & Neurology Neurology; EMERGENCY PHYSICIAN Student in an Organized Health Care Education/Training Program
DX: I16.1 Hypertensive emergency (principal); I61.8 Other nontraumatic intracerebral hemorrhage; I67.89 Other cerebrovascular disease; K21.9 Gastro-esophageal reflux disease without esophagitis; E11.9 Type 2 diabetes mellitus without complications; H53.461 Homonymous bilateral field defects, right side; E78.00 Pure hypercholesterolemia, unspecified; E55.9 Vitamin D deficiency, unspecified; K57.30 Diverticulosis of large intestine without perforation or abscess without bleeding; I10 Essential (primary) hypertension; M35.00 Sjogren syndrome, unspecified; R29.701 NIHSS score 1; K58.9 Irritable bowel syndrome, unspecified; Z87.891 Personal history of nicotine dependence; Z88.0 Allergy status to penicillin; Z88.2 Allergy status to sulfonamides; Z79.84 Long term (current) use of oral hypoglycemic drugs; Z79.899 Other long term (current) drug therapy
CPT/HCPCS: 70450; 70551; 71045; 80048; 80053; 80061; 82607; 82962; 83036; 83735; 84100; 84443; 84484; 85025; 85027; 85610; 85730; 86850; 86900; 86901; 92526; 92610; 93005; 93306; 96374; 97116; 97163; 97167; 97535; 99291

== ENCOUNTER → 2024-07-05 15:44 | Outpatient (REF) | payer MEDICARE, OTHER, SELFPAY | LOC: RAD 15:44 | PROVIDERS: ATTENDING PHYSICIAN Family Medicine | DX: Z86.73 Personal history of transient ischemic attack (TIA), and cerebral infarction without residual deficits (principal); I63.81 Other cerebral infarction due to occlusion or stenosis of small artery | CPT/HCPCS: 70450 ==

== ENCOUNTER → 2024-12-04 10:11 | Outpatient (REF) | payer MEDICARE, OTHER, SELFPAY | LOC: RCS 10:11 | PROVIDERS: ATTENDING PHYSICIAN Family Medicine; FAMILY PHYSICIAN Family Medicine | DX: R00.2 Palpitations (principal) | CPT/HCPCS: 93225; 93226 ==